=== PATIENT | male | born 2005 | race Hispanic/Latino ===

== ENCOUNTER 2024-05-18 21:31 | Emergency (ER) | payer SELFPAY ==
[2024-05-18] MEDS ORDERED: Ibuprofen 800 MG TAB ONE (22:00)
[2024-05-18] MEDS ORDERED: Sulfameth/Trimethoprim DS 800-160mg TAB ONE (22:00)
== END 2024-05-18 22:17 | disposition home or self-care (01) ==
LOC: NAV ERS 21:31
DX: L03.116 Cellulitis of left lower limb (principal)
CPT/HCPCS: 99282